=== PATIENT | male | born 1980 | race Caucasian/White ===

== ENCOUNTER 2018-04-12 16:45 | Emergency (ER) | payer MEDICAID ==
[2018-04-12] MEDS ORDERED: TDAP Vaccine 0.5 mL Syr IM ONE (17:08)
[2018-04-12] MEDS ORDERED: ceFAZolin 1 gm in NS 1 GM/100 ML BAG IVPB STA (17:08)
[2018-04-12] MEDS ORDERED: Morphine 2 mg/2 mL syringe IVP STA (17:44)
--- NOTE | 2018-04-12 17:45 | ED PDOC ---
Arrival/HPI - General Chief Complaint: Finger,Hand,&Wrist Time Seen by Provider: 04/12/18 17:00 Historian: Patient - History of Present Illness Narrative History of Present Illness (Text): 04/12/18 17:44 37-year-old male presents today with nail gun injury status post arrival. Patient states that he was doing some Work and shot a nail through the volar aspect of the finger and it exited through the dorsal aspect of the finger. Patient complaining of 9 out of 10 pain to the injury site. He is unsure of his last tetanus shot. He denies numbness or tingling in the extremity. He is complaining of a throbbing sensation along the distal tip of the second finger of the left hand. Incident occurred prior to arrival. He denies limited range of motion of the finger. Patient denies any other complaints. Time/Duration: Prior to Arrival Symptom Onset: Sudden Symptom Course: Unchanged Quality: Throbbing Severity Level: 10 Past Medical History - Provider Review Nursing Documentation Reviewed: Yes - Travel History Have you recently traveled outside [place] w/in the past 3 mons?: No - Tetanus Immunization Tetanus Immunization: Unknown - Psychiatric Hx Substance Use: No Family/Social History - Physician Review Nursing Documentation Reviewed: Yes Family/Social History: Unknown Family HX Smoking Status: Never Smoked Hx Alcohol Use: No Hx Substance Use: No Allergies/Home Meds Allergies/Adverse Reactions: Allergies No Known Allergies Allergy (Verified 04/12/18 16:59) Review of Systems - Review of Systems Constitutional: absent: Fatigue, Fevers Respiratory: absent: SOB, Cough Cardiovascular: absent: Chest Pain, Palpitations Gastrointestinal: absent: Abdominal Pain, Nausea, Vomiting Musculoskeletal: Arthralgias Skin: Other (puncture wound, finger) Neurological: Dizziness. absent: Headache Psychiatric: absent: Anxiety, Depression, Suicidal Ideation Physical Exam Vital Signs Reviewed: Yes Vital Signs Temp Pulse Resp BP Pulse Ox 04/12/18 20:15 98.7 F 82 18 133/85 100 04/12/18 18:44 79 18 134/75 100 04/12/18 16:45 98.6 F 88 18 128/75 100 Temperature: Afebrile Blood Pressure: Normal Pulse: Regular Respiratory Rate: Normal Appearance: Positive for: Well-Appearing, Non-Toxic, Comfortable Pain Distress: None Mental Status: Positive for: Alert and Oriented X 3 - Systems Exam Head: Present: Atraumatic Neck: Present: Normal Range of Motion Respiratory/Chest: Present: Clear to Auscultation Cardiovascular: Present: Regular Rate and Rhythm Upper Extremity: Present: Normal ROM, NORMAL PULSES, Tenderness (left 2nd finger ; there is a Nail within the distal phalanx. the nail head is located along the volar aspect of the left 2nd finger and exits through the dorsal aspect of the finger), Swelling, Neurovascularly Intact, Capillary Refill < 2s. No: Erythema Neurological: Present: GCS=15, Speech Normal Skin: Present: Warm, Dry, Normal Color. No: Rashes Psychiatric: Present: Alert, Oriented x 3 Medical Decision Making ED Course and Treatment: 04/12/18 17:56 pt non toxic well appearing; pt with nail puncture by nail gun. left 2nd finger; neurovascularly intact, full range of motion of the finger including full range of motion of the distal phalanx. Cap refill less than 2. ancef given IV morphine given for pain tetanus updated. pt seen and evaluated by dr. boone. xray left 2nd digit; + nail through distal phalanx. i discussed the case in depth with sebastian. he reviewed xrays; he advised abx, cut nail along dorsal aspect and pull from the nail head/volar aspect. after removal of nail irrigate wound, give abx and f/u in office. procedure note; using sterile technique; digital block was performed; 2.5cc of 2 % lidocaine injected. adequate anesthesia; wire cutters were used to cut the nail along the dorsal aspect of the finger and pliers were used to remove the nail from the volar aspect of the finger. pt tolerated procedure well. no complications. wound was then irrigated with copious amounts of NS using high pressure irrigation. repeat xray; + fracture, no FB i again discussed the repeat xrays with dr. Cortes. pt is to be d/c on abx and f/ u with dr. cortes in the office. wound dressed, finger splint applied. all information was discussed with the patient in depth; advised patient to take antibiotics as prescribed, advised applying bacitracin twice daily to the affected area. Discussed signs and symptoms of infection with the patient advised the patient to return immediately if he develops worsening pain, increased swelling, increased redness, purulent discharge, limited range of motion of the finger or if any other concerning symptoms develop. I again stressed the importance of immediate follow-up with the orthopedist on Saturday. 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 all aspects of this case were discussed the attending of record. impression; puncture wound, finger, foreign body finger, open fracture finger keflex; 1 capsule 4 times daily x 7 days. bactrim; 1 tablet twice daily x 7 days. use finger splint motrin every 6 hours as needed for pain. follow up with the hand specialist/orthopedist within the next 2 days. return immediately if signs of infection develop; high fevers, increasing pain, redness, swelling, purulent discharge or if any other concerning symptoms develop. - RAD Interpretation Radiology Orders: 04/12/18 17:07 HAND LEFT 2ND DIGIT (FINGER) [RAD] Stat 04/12/18 19:24 HAND LEFT 2ND DIGIT (FINGER) [RAD] Stat - Medication Orders Current Medication Orders: Discontinued Medications Cefazolin Sodium (Ancef 1gm In Ns) 1 gm in 100 mls @ 100 mls/hr IVPB STAT STA PRN Reason: Protocol Stop: 04/12/18 18:07 Last Admin: 04/12/18 17:43 Dose: 100 mls/hr eMAR Start Stop Document 04/12/18 17:43 EWO (Rec: 04/12/18 17:43 [id number] [id number]) Intravenous Solution Start Date 04/12/18 Start Time 17:43 End Date 04/12/18 End time 18:43 Total Infusion Time 60 Lidocaine HCl (Lidocaine 2% 20ml Vial) 3 ml IJ ONCE STA Stop: 04/12/18 18:50 Last Admin: 04/12/18 19:10 Dose: 3 ml Morphine Sulfate (Morphine) 2 mg IVP STAT STA Stop: 04/12/18 17:45 Last Admin: 04/12/18 18:10 Dose: 2 mg IVP Administration Document 04/12/18 18:10 EWO (Rec: 04/12/18 18:11 [id number]) Charges for Administration # of IVP Administrations 1 Tetanus/Reduced Diphtheria/Acell Pertussis (Boostrix Vaccine Inj) 0.5 ml IM .ONCE ONE Stop: 04/12/18 17:09 Last Admin: 04/12/18 17:43 Dose: 0.5 ml Immunization Registry Document 04/12/18 17:43 EWO (Rec: 04/12/18 17:43 [id number] [id number]) Immunization Registry Consent Date 04/12/18 Disposition/Present on Arrival - Present on Arrival Any Indicators Present on Arrival: No History of DVT/PE: No History of Uncontrolled Diabetes: No Urinary Catheter: No History of Decub. Ulcer: No History Surgical Site Infection Following: None - Disposition Have Diagnosis and Disposition been Completed?: Yes Diagnosis: Puncture wound of finger, Open fracture of finger Disposition: HOME/ ROUTINE Disposition Time: 20:08 Patient Plan: Discharge Condition: GOOD Additional Instructions: keflex; 1 capsule 4 times daily x 7 days. bactrim; 1 tablet twice daily x 7 days. use finger splint motrin every 6 hours as needed for pain. follow up with the hand specialist/orthopedist within the next 2 days. return immediately if signs of infection develop; high fevers, increasing pain, redness, swelling, purulent discharge or if any other concerning symptoms develop. Prescriptions: Bacitracin OINT 1 applic TP BID #1 tube Cephalexin [Keflex] 500 mg PO QID #28 capsule Sulfamethoxazole/Trimethoprim [Bactrim DS 800 mg-160 mg] 1 tab PO BID #14 tab Referrals: Brandon Harper MD [Primary Care Provider] - Follow up with primary Jed Cortes MD [Staff Provider] - Follow up with primary Forms: [facility] (Arabic), WORK NOTE
[2018-04-12 18:44] VITALS: RESP 18; O2SAT 100
[2018-04-12] MEDS ORDERED: Lidocaine 2% Inj (20ml) IJ STA (18:49)
[2018-04-13 00:46] VITALS: BP 133/85; PULSE 82; TEMP 98.7
--- NOTE | 2018-04-13 09:05 | RAD ---
PROCEDURE: Left Index finger radiographs. HISTORY: shot nail through 2nd finger with nail gun COMPARISON: None. TECHNIQUE: AP radiograph of the left hand, as well as spot oblique and lateral images of index finger were obtained. FINDINGS: LEFT INDEX FINGER: Foreign body identified coursing through the distal tuft of the 2nd digit. This is consistent with clinical history above. Remainder of the left hand (as seen on the AP view) grossly intact. JOINTS: Normal. SOFT TISSUES: Normal. OTHER FINDINGS: None. IMPRESSION: Foreign body, current nail courses through the distal tuft region including soft tissues and distal phalanx. No pathologic fracture identified.
--- NOTE | 2018-04-13 09:06 | RAD ---
PROCEDURE: Left Index finger radiographs. HISTORY: s/p removal of Foreign body, nail COMPARISON: None. TECHNIQUE: AP radiograph of the left hand, as well as spot oblique and lateral images of index finger were obtained. FINDINGS: LEFT INDEX FINGER: Fracture line identified through the distal tuft. This is nondisplaced. Normal left index finger, without fracture or focal lesion. Remainder of the left hand (as seen on the AP view) grossly intact. JOINTS: Normal. SOFT TISSUES: Normal. OTHER FINDINGS: None. IMPRESSION: No visulaized radiopaque/visualized foreign body. Fracture line identified at the site of the previous foreign body coursing through the distal phalanx distal tuft region.
== END 2018-04-12 20:26 | disposition home or self-care (01) ==
LOC: ED 16:45
DX: S61.231A Puncture wound without foreign body of left index finger without damage to nail, initial encounter (principal); S62.631B Displaced fracture of distal phalanx of left index finger, initial encounter for open fracture; W29.4XXA Contact with nail gun, initial encounter; Z23 Encounter for immunization
CPT/HCPCS: 11730; 73140; 90471; 90715; 96365; 96375; 99285; J0690; J2270